=== PATIENT | female | born 2000 | race Caucasian/White ===

== ENCOUNTER → 2020-02-18 | Outpatient (CLI) | payer BC ==
[~2020-02-18] MED LIST: CEPH250SUA PO; IBUP600 PO
== END | disposition home or self-care (01) ==
LOC: LAB SHORT 10:11 → LAB EV 10:11
DX: J03.90 Acute tonsillitis, unspecified (principal)
CPT/HCPCS: 87081

== ENCOUNTER → 2022-05-30 | Outpatient (CLI) | payer BC ==
[2022-05-30 13:28] LABS: BASOPHILS ABSOLUTE AUTO 0.07 K/mm3 (0.00-0.23); BASOPHILS PERCENT AUTO 1 % (0-2); EOSINOPHILS ABSOLUTE AUTO 0.09 K/mm3 (0.00-0.68); EOSINOPHILS PERCENT AUTO 1 % (0-6); Hematocrit 40.5 % (33.0-51.0); Hemoglobin 13.7 g/dL (11.5-16.0); IMMATURE GRAN ABSOLUTE AUTO 0.04 K/mm3 (0.00-0.10); IMMATURE GRAN PERCENT AUTO 0 % (0-1); LYMPHOCYTES ABSOLUTE AUTO 2.49 K/mm3 (0.84-5.20); LYMPHOCYTES PERCENT AUTO 24 % (21-46); MONOCYTES ABSOLUTE AUTO 0.77 K/mm3 (0.16-1.47); MONOCYTES PERCENT AUTO 7 % (4-13); Mean Corpuscular HGB Conc 33.8 g/dL (31.5-36.5); Mean Corpuscular Volume 89 fL (80-100); Mean Platelet Volume 10.5 fL (9.1-12.4); NEUTROPHILS ABSOLUTE AUTO 7.11 K/mm3 (1.96-9.15); NEUTROPHILS PERCENT AUTO 67 % (41-73); Platelet Count 308 K/mm3 (150-400); RDW Coefficient Variation 12.2 % (11.7-14.2); RDW Standard Deviation 39.7 fL (35.1-46.3); Red Blood Cell Count 4.56 M/mm3 (3.80-5.20); White Blood Cell Count 10.57 K/mm3 (4.00-11.30)
[2022-05-30 13:37] LABS: Albumin, Blood 4.3 g/dL (3.4-5.0); Albumin/Globulin Ratio 1.2 (0.8-1.8); Bilirubin, Total 0.3 mg/dL (0.1-1.0); Bun/Creatinine Ratio 11.8 (12.0-20.0); Calcium, Blood 9.2 mg/dL (8.5-10.1); Creatinine, Blood 0.76 mg/dL (0.40-1.00); Globulin, Blood 3.6 g/dL (2.2-4.0); Potassium, Blood 3.7 mmol/L (3.5-5.5); Total Protein, Blood 7.9 g/dL (6.4-8.2)
== END | disposition home or self-care (01) ==
LOC: LAB 13:20 → LAB SHORT 13:20
PROVIDERS: Physician Assistant Medical
DX: R10.10 Upper abdominal pain, unspecified (principal)
CPT/HCPCS: 80053; 83690; 85025

== ENCOUNTER → 2023-03-21 | Outpatient (CLI) | payer BC ==
[2023-03-22 15:12] LABS: HPV 16 Negative (Negative); HPV 18 Negative (Negative); HPV OTHER HR TYPES Negative (Negative)
== END | disposition home or self-care (01) ==
LOC: LAB 16:48 → RAD SHORT 16:48
PROVIDERS: Physician Assistant
DX: Z01.419 Encounter for gynecological examination (general) (routine) without abnormal findings (principal)
CPT/HCPCS: 87624; G0145

== ENCOUNTER → 2024-05-14 | Outpatient (CLI) | payer BC | LOC: LAB 12:16 → LAB SHORT 12:16 | DX: Z34.93 Encounter for supervision of normal pregnancy, unspecified, third trimester (principal) | CPT/HCPCS: 87081; 87150 ==

== ENCOUNTER 2024-06-18 20:56 | Inpatient (IN) | payer BC ==
[~2024-06-18] VITALS: Ht 162.6 cm; Wt 77.2 kg
[2024-06-18 21:24] VITALS: BP 131/73
[2024-06-18 21:40] VITALS: BP 124/66
[2024-06-18 23:02] VITALS: BP 123/70
[2024-06-19] VITALS (57 sets, daily range): BP systolic 88–140; BP diastolic 52–100
[2024-06-19] MEDS ORDERED: Zolpidem Tartrate 10 MG Tab PO ONE (02:20)
[2024-06-19] MEDS ORDERED: PRENATAL TABLE1 EAC2 PO (02:47)
[2024-06-19] MEDS ORDERED: FentaNYL Citrate 50 MCG/ML 2 ML Injection IV PRN (03:35)
[2024-06-19 06:51] LABS: Hematocrit 36.8 % (33.0-51.0); Hemoglobin 11.8 g/dL (11.5-16.0); Mean Corpuscular HGB 28.5 pg (26.0-34.0); Mean Corpuscular HGB Conc 32.1 g/dL (31.5-36.5); Mean Corpuscular Volume 89 fL (80-100); Platelet Count 204 K/mm3 (150-400); RDW Coefficient Variation 14.5 % (11.7-14.2); RDW Standard Deviation 46.5 fL (35.1-46.3); Red Blood Cell Count 4.14 M/mm3 (3.80-5.20); White Blood Cell Count 16.38 K/mm3 (4.00-11.30)
[2024-06-19] MEDS ORDERED: OXYTOCIN/RINGER'S LACTATE 500 ML IV PRN (07:05)
[2024-06-19] MEDS ORDERED: Ondansetron HCl 2 MG / ML 2ML Vial IV PRN (07:05)
[2024-06-19] MEDS ORDERED: Misoprostol 200 MCG Tab PR PRN (07:05)
[2024-06-19] MEDS ORDERED: Lactated Ringer's 1,000 ML IV PRN (07:05)
[2024-06-19] MEDS ORDERED: Carboprost Tromethamine 250 MCG/ML 1ML Amp IM PRN (07:05)
[2024-06-19] MEDS ORDERED: Misoprostol 200 MCG Tab BC PRN (07:05)
[2024-06-19] MEDS ORDERED: Acetaminophen 500 MG Tab PO PRN (07:05)
[2024-06-19] MEDS ORDERED: Methylergonovine Maleate 0.2MG / ML 1ML Amp IM PRN (07:05)
[2024-06-19] MEDS ORDERED: Oxytocin 10 Unit / ML Vial IM PRN (07:05)
[2024-06-19] MEDS ORDERED: Calcium Carbonate 500 MG Tab Chew PO PRN (07:10)
[2024-06-19] MEDS ORDERED: Tranexamic Acid 100 ML IV SCH (07:15)
[2024-06-19] MEDS ORDERED: FentaNYL 2mcg/ml-Bup 0.1% Epd 250 ML EPI PRN (07:50)
[2024-06-19] MEDS ORDERED: Lactated Ringer's 1,000 ML IV SCH ×4 (07:50→21:55)
[2024-06-19] MEDS ORDERED: ePHEDrine Sulfate 50 MG/ML 1ML Injection XX PRN (07:50)
[2024-06-19 09:22] LABS: BASOPHILS PERCENT MAN 0 % (0-2); EOSINOPHILS PERCENT MAN 0 % (0-6); LYMPHOCYTES ABSOLUTE MAN 1.14 K/mm3 (0.84-5.20); LYMPHOCYTES PERCENT MAN 7 % (21-46); MONOCYTES ABSOLUTE MAN 0.81 K/mm3 (0.16-1.47); MONOCYTES PERCENT MAN 5 % (4-13); NEUTROPHILS ABSOLUTE MAN 14.41 K/mm3 (1.96-9.15); SEG NEUTROPHILS PERCENT MAN 88 % (41-73); TOTAL CELLS COUNTED 100
[2024-06-19] MEDS ORDERED: OXYTOCIN/RINGER'S LACTATE 500 ML IV SCH (12:00)
[2024-06-19] MEDS ORDERED: Benzocaine Topical Anesthetic Spray 60GM TOP PRN (21:55)
[2024-06-19] MEDS ORDERED: Lanolin Cream TOP PRN (21:55)
[2024-06-19] MEDS ORDERED: Docusate Sodium 100 MG Cap PO PRN (21:55)
[2024-06-19] MEDS ORDERED: Acetaminophen 325 MG TABLET PO PRN (21:55)
[2024-06-19] MEDS ORDERED: OxyCODONE 5 mg/Acetamin 325 mg TABLET PO PRN (21:55)
[2024-06-19] MEDS ORDERED: Naproxen 500 MG Tab PO PRN (21:55)
[2024-06-19] MEDS ORDERED: FLU VACC TS2024-25(6MOS UP)/PF 45 MCG/0.5 ML SYRINGE IM ONE (22:00)
[2024-06-19] MEDS ORDERED: Witch Hazel/Glycerin PADS TOP PRN (22:00)
[2024-06-20] MEDS ORDERED: Ketorolac Tromethamine 30mg Vial IV SCH
[2024-06-20 05:04] VITALS: BP 115/61
[2024-06-20 06:38] LABS: BASOPHILS ABSOLUTE AUTO 0.06 K/mm3 (0.00-0.23); BASOPHILS PERCENT AUTO 0 % (0-2); EOSINOPHILS ABSOLUTE AUTO 0.23 K/mm3 (0.00-0.68); EOSINOPHILS PERCENT AUTO 1 % (0-6); Hematocrit 30.4 % (33.0-51.0); IMMATURE GRAN ABSOLUTE AUTO 0.22 K/mm3 (0.00-0.10); IMMATURE GRAN PERCENT AUTO 1 % (0-1); LYMPHOCYTES ABSOLUTE AUTO 1.54 K/mm3 (0.84-5.20); LYMPHOCYTES PERCENT AUTO 7 % (21-46); MONOCYTES ABSOLUTE AUTO 1.17 K/mm3 (0.16-1.47); MONOCYTES PERCENT AUTO 5 % (4-13); Mean Corpuscular HGB 29.1 pg (26.0-34.0); Mean Corpuscular HGB Conc 32.9 g/dL (31.5-36.5); Mean Corpuscular Volume 88 fL (80-100); Mean Platelet Volume 12.9 fL (9.1-12.4); NEUTROPHILS ABSOLUTE AUTO 18.44 K/mm3 (1.96-9.15); NEUTROPHILS PERCENT AUTO 85 % (41-73); Platelet Count 173 K/mm3 (150-400); RDW Coefficient Variation 14.6 % (11.7-14.2); RDW Standard Deviation 47.1 fL (35.1-46.3); Red Blood Cell Count 3.44 M/mm3 (3.80-5.20); White Blood Cell Count 21.66 K/mm3 (4.00-11.30)
[2024-06-20 07:29] VITALS: BP 107/59
[2024-06-20] MEDS ORDERED: Prenatal Vit/FE Fumarate/FA 1 Tab PO SCH (09:00)
[2024-06-20] MEDS ORDERED: FentaNYL Citrate 50 MCG/ML 2 ML Injection IV PRN (10:15)
[2024-06-20 11:14] VITALS: BP 115/71
[2024-06-20 15:53] VITALS: BP 121/65
[2024-06-20 20:32] VITALS: BP 116/75
[2024-06-21 01:10] VITALS: BP 111/67
[2024-06-21 05:17] VITALS: BP 110/64
[2024-06-21 07:12] VITALS: BP 118/80
--- NOTE | 2024-06-21 09:38 | NUR ---
DISCHARGE INSTRUCTIONS, WRITTEN AND VERBAL, GIVEN TO PT AND S.O. ASLEN. ANSWERED ALL QUESTIONS AND CONCERNS. FOLLOW UP APPOINTMENT SCHEDULED. EPDS SCORE OF 2. IV DISCONTINUED ON PREVIOUS SHIFT. PT IS AWAITING PROVIDER TO ASSESS AND BE D/C HOME. ALL PERSONAL BELONGINGS HAVE BEEN TAKEN TO CAR.
[2024-06-21 11:30] VITALS: BP 130/82
== END 2024-06-21 12:15 | disposition home or self-care (01) | DRG 807 ==
LOC: OBS 20:56 → BC 20:56 → OBS 06-19 04:17 → BC 06-19 04:19
PROVIDERS: Student in an Organized Health Care Education/Training Program; ADMIT Family Medicine
PROC: 10D07Z7 Extraction of Products of Conception, Internal Version, Via Natural or Artificial Opening (ICD-10-PCS; principal; 2024-06-19)
PROC: 3E0R3BZ Introduction of Anesthetic Agent into Spinal Canal, Percutaneous Approach (ICD-10-PCS; 2024-06-19)
PROC: 00HU33Z Insertion of Infusion Device into Spinal Canal, Percutaneous Approach (ICD-10-PCS; 2024-06-19)
DX: O48.0 Post-term pregnancy (principal); Z37.0 Single live birth; O40.3XX0 Polyhydramnios, third trimester, not applicable or unspecified; O77.0 Labor and delivery complicated by meconium in amniotic fluid; Z3A.41 41 weeks gestation of pregnancy; Z79.899 Other long term (current) drug therapy; O76 Abnormality in fetal heart rate and rhythm complicating labor and delivery; O36.63X0 Maternal care for excessive fetal growth, third trimester, not applicable or unspecified
CPT/HCPCS: 36415; 51702; 59025; 81003; 85007; 85025; 85027; 86850; 86900; 86901; 86923; 99214; A9270; J1885; J3010; J7120